=== PATIENT | female | born 1955 | race Caucasian/White ===

== ENCOUNTER 2023-01-25 23:02 | Emergency (ER) | payer OTHER, MEDICARE ==
[~2023-01-25] VITALS: Ht 160 cm; Wt 83.9 kg
[2023-01-25 23:22] VITALS: BP_SYST 157; PULSE 58; RESP 18; TEMP 97.5; O2SAT 97
[2023-01-26] MEDS ORDERED: DIPHTH,PERTUSS(ACELL),TET VAC 0.5 ML VIAL (Tdap) I.M. ONE (01:00)
[2023-01-26] MEDS ORDERED: BACITRACIN ZINC 15 GM TOPICAL OINTMENT TP ONE (01:00)
[2023-01-26] MEDS ORDERED: AMOXICILLIN/POTASSIUM CLAV 875 MG TABLET PO ONE (01:00)
[2023-01-26] MEDS ORDERED: AUG875 PO (01:05)
[2023-01-26] MEDS ORDERED: BACITRACIN 1 GM OINT TP ONE (01:07)
[2023-01-26 01:17] VITALS: BP_SYST 157; PULSE 58; RESP 18; TEMP 97.5; O2SAT 97
== END 2023-01-26 01:17 | disposition home or self-care (01) ==
LOC: SED 23:02
DX: S91.331A Puncture wound without foreign body, right foot, initial encounter (principal); I10 Essential (primary) hypertension; Z79.899 Other long term (current) drug therapy; W54.0XXA Bitten by dog, initial encounter; Y93.89 Activity, other specified; Y92.89 Other specified places as the place of occurrence of the external cause; Y99.8 Other external cause status
CPT/HCPCS: 90715; 99283